=== PATIENT | male | born 1995 | race Hispanic/Latino ===

== ENCOUNTER 2022-08-29 21:46 | Emergency (ER) | payer MEDICAID, OTHER ==
[~2022-08-29] VITALS: Ht 180.3 cm; Wt 92.5 kg
[2022-08-30] MEDS ORDERED: IBUPROFEN 800 MG TAB ONE (00:49)
[2022-08-30] MEDS ORDERED: IBUPROFEN 800 MG TAB PO ONE (01:00)
[2022-08-30] MEDS ORDERED: ZOSYN 3.375GM +NS 50ML IVPB STA (01:05)
[2022-08-30] MEDS ORDERED: ZOSYN 3.375GM+NS 50ML 50 ML IVPB ONE (01:48)
[2022-08-30] MEDS ORDERED: TETANUS/DIPHTHERIA TOXOID [ADULT] 0.5 ML VIAL IM ONE (01:49)
[2022-08-30] MEDS ORDERED: DIPH,PERTUSS(ACELL),TET VAC/PF 0.5 ML VIAL IM ONE (02:00)
[2022-08-30] MEDS ORDERED: IBUP-2077 PO (02:48)
[2022-08-30] MEDS ORDERED: AMOX1TAB16 PO (02:48)
[2022-08-30 02:55] VITALS: BP 117/83
== END 2022-08-30 03:06 | disposition home or self-care (01) ==
LOC: EDH 21:46
DX: S63.92XA Sprain of unspecified part of left wrist and hand, initial encounter (principal); B08.4 Enteroviral vesicular stomatitis with exanthem; Z79.1 Long term (current) use of non-steroidal anti-inflammatories (NSAID); X58.XXXA Exposure to other specified factors, initial encounter; Y93.89 Activity, other specified; Y92.89 Other specified places as the place of occurrence of the external cause; Y99.8 Other external cause status; G43.909 Migraine, unspecified, not intractable, without status migrainosus
CPT/HCPCS: 99284; 96365; 90714; 73130; 90471; J2543; 90715